=== PATIENT | female | born 1945 | race Two or more races ===

== ENCOUNTER 2018-12-11 06:26 | Day surgery (SDC) | payer BC ==
--- NOTE | 2018-12-10 14:32 | PREOPHP ---
DATE OF ADMISSION: 12/11/2018 HISTORY OF PRESENT ILLNESS: This 73-year-old patient is admitted for an advanced cataract of the rig ht eye. The patient has had progressive deterioration of vision in both eyes for a number of years w ithout prior history of eye disease or injury. PAST MEDICAL HISTORY: The patient has a 12-year history of zbu-fcfmqge-tbioifhce diabetes mellitus a s well as a history of systemic hypertension and hypercholesterolemia. CURRENT MEDICATIONS: Include: 1. Glipizide. 2. Metformin. 3. Losartan. 4. Amlodipine. 5. Lipitor. ALLERGIES: THERE ARE NO KNOWN ALLERGIES. PHYSICAL EXAMINATION: The visual acuity with correction is finger counting vision in each eye. Slit lamp examination reveals anterior cortical dense nuclear sclerotic and posterior subcapsular catarac ts present in both eyes. Applanation tonometry is 18 mmHg in both eyes. Examination of the retina i s grossly within normal limits in both eyes, although fine details cannot be visualized due to the ad vanced nature of the cataract. DIAGNOSES: Nuclear sclerotic and posterior subcapsular cataract in both eyes. PLAN: Cataract extraction with lens implant, right eye. The risks and alternatives to the surgery h ave been discussed with the patient as well as the higher risk of complications due to the advanced n ature of the cataract. The patient understands that her visual acuity is currently significantly com promised and avoiding cataract surgery would not allow her to function visually. The patient has dec ided to proceed with the surgery in hopes of improved visual acuity leading to greater ability to per form activities of daily living. Dictated By: KATIA LING/THOMAS Conf#: [id number] DID#: [id number]
[2018-12-10 15:41] VITALS: Ht 152.4 cm; Wt 56.0 kg
[~2018-12-11] VITALS: Ht 152.4 cm; Wt 56.0 kg
[2018-12-11] MEDS ORDERED: SOD CHLORIDE 0.9% 1,000 ML IV SCH (07:00)
[2018-12-11] MEDS ORDERED: TROPICAMIDE 1% 15 ML OPH OPER SCH (07:00)
[2018-12-11] MEDS ORDERED: MOXIFLOXACIN 0.5% 3 ML OPH OPER SCH (07:00)
[2018-12-11] MEDS ORDERED: CYCLOPENTOLATE/PHENYLEPH 2 ML OPH OPER SCH (07:00)
[2018-12-11] MEDS ORDERED: DICLOFENAC 0.1% 2.5 ML OPH OPER SCH (07:00)
[2018-12-11 08:03] VITALS: BP 151/79; PULSE 86; RESP 18
[2018-12-11] MEDS ORDERED: DEXAMETHASONE 4 MG/ML 1 ML INJ ONE (08:24)
[2018-12-11] MEDS ORDERED: TETRACAINE 0.5% 4 ML OPH ONE (08:24)
[2018-12-11] MEDS ORDERED: NA HYALURONATE/CHONDROITIN 0.5 ML SYG ONE (08:24)
[2018-12-11] MEDS ORDERED: CARBACHOL 0.01% 1.5 ML OPH INJ ONE (08:24)
[2018-12-11] MEDS ORDERED: LIDOCAINE 4% (MPF) 5 ML INJ ONE ×2 (08:24→09:22)
--- NOTE | 2018-12-11 08:31 | PREAC ---
Date/Time of Note Date/Time of Note DATE: 12/11/18 TIME: 08:30 Anesthesia Eval and Record Evaluation Time Pre-Procedure Interview DATE: 12/11/18 TIME: 08:30 Age 73 Sex female NPO: 8 hrs Preoperative diagnosis Right eye cataract Planned procedure Cataract extraction with IOL implant Past Medical History Past Medical History: Includes Cardio: HTN, Dyslipidemia Endo: Diabetes Surgery & Anesthesia Issues No known issue Meds Anticoagulation: No Beta Marianela within 24 hr: No Reason Beta Marianela not given: Pt. not on B-Marianela Current Medications Diclofenac Sodium (Voltaren 0.1%) 1 drop Q5 MIN X 3 OPER Last administered on 12/11/18at 07:31; Admin Dose 1 DROP; Start 12/11/18 at 07:00 Tropicamide (Mydriacyl 1%) 1 drop Q5 MIN X3 OPER Last administered on 12/11/18at 07:31; Admin Dose 1 DROP; Start 12/11/18 at 07:00 Moxifloxacin HCl (Vigamox) 1 drop Q5 MIN X 3 OPER Last administered on 12/11/18 07:32; Admin Dose 1 DROP; Start 12/11/18 at 07:00 Cyclopentolate/ Phenylephrine (Cyclomydril Oph 2 ml) 1 drop Q5 MIN X 3 OPER Last administered on 12/11/18 07:32; Admin Dose 1 DROP; Start 12/11/18 at 07:00 Sodium Chloride 1,000 ml @ 25 mls/hr Q24H IV Last administered on 12/11/18 07:33; Admin Dose 25 MLS/HR; Start 12/11/18 at 07:00 Meds reviewed: Yes Allergies Coded Allergies: No Known Allergy (Unverified , 12/10/18) Allergies Reviewed: Yes Labs/Studies Labs Reviewed: Reviewed by anesthesiologist test: N/A Pre-procedure Exam Last vitals Vital Signs Date Temp Pulse Resp B/P (MAP) Pulse Ox O2 O2 Flow FiO2 Time Delivery Rate 12/11/18 98.5 86 18 151/79 99 Room Air 08:03 (103) Airway: Adequate mouth opening Mallampati: Mallampati I Teeth: Normal Lung: Normal Heart: Normal ASA Physical Status ASA physical status: 2 Emergency: None Planned Anesthetic General/MAC: MAC Planned Pain Management Parenteral pain med Pre-operative Attestations Prior to commencing anesthesia and surgery, the patient was re-evaluated, there was verification of: *The patient's identity *The results of appropriate recent lab work and preoperative vital signs *The above evaluation not changing prior to induction *Anesthetic plan, risk benefits, alternative and complications discussed with patient/family; questions answered; patient/family understands, accepts and wishes to proceed. GEOVANNA HENSLEY MD Dec 11, 2018 08:30
[2018-12-11] MEDS ORDERED: PROPOFOL 20 ML ONE (08:39)
[2018-12-11] MEDS ORDERED: METOCLOPRAMIDE 10 MG INJ IV PRN (09:00)
[2018-12-11] MEDS ORDERED: hydrALAzine 20 MG INJ IV PRN (09:00)
[2018-12-11] MEDS ORDERED: MIDAZOLAM 1 MG/ML 2 ML INJ IV PRN (09:00)
[2018-12-11] MEDS ORDERED: FENTAnyl 50 MCG/ML VIAL IV PRN ×3 (09:00)
[2018-12-11] MEDS ORDERED: LABETALOL HCL 20MG INJ IV PRN (09:00)
[2018-12-11] MEDS ORDERED: DIPHENHYDRAMINE 50 MG INJ IV PRN (09:00)
[2018-12-11] MEDS ORDERED: OXYCODONE/ACETAMINOPHEN (5/325) TAB PO PRN ×2 (09:00)
[2018-12-11] MEDS ORDERED: EPHEDrine SULFATE 50 MG/5 ML SYG IV PRN (09:00)
[2018-12-11] MEDS ORDERED: ONDANSETRON 4 MG INJ IV PRN (09:00)
[2018-12-11] MEDS ORDERED: MEPERIDINE 25 MG INJ IV PRN (09:00)
[2018-12-11] MEDS ORDERED: MOXIFLOXACIN 0.5% 3 ML OPH ONE (09:11)
[2018-12-11 09:20] VITALS: BP 96/75; RESP 18
--- NOTE | 2018-12-11 09:24 | SIPON ---
Date/Time of Note Date/Time of Note DATE: 12/11/18 TIME: 09:22 Operative Report Preoperative Diagnosis mature cataract od Postoperative Diagnosis me Operation/Procedure Performed cataract extraction with lens implant od Surgeon Katia Soto clinical education assistant none Anesthesia: MAC Estimated blood loss: none Transfusion Required none Specimen none Grafts/Implants posterior chamber lens implant KATIA SOTO MD Dec 11, 2018 09:24
[2018-12-11 09:25] VITALS: BP 117/74; PULSE 80; RESP 16
[2018-12-11 09:30] VITALS: BP 124/72; PULSE 78; RESP 15
--- NOTE | 2018-12-11 09:31 | OPR ---
DATE OF OPERATION: 12/11/2018 PREOPERATIVE DIAGNOSIS: Mature cataract, right eye. POSTOPERATIVE DIAGNOSIS: Mature cataract, right eye. OPERATION PERFORMED: Cataract extraction with lens implant, right eye. SURGEON: Katia May MD. ANESTHESIA: Dr. Bernal. DESCRIPTION OF OPERATION: The patient was brought to the operating room on an eye gurney, positioned appropriately, and attached electrocardiogram monitoring, given oxygen via a nasal cannula. After s ome intravenous sedation, the patient received lidocaine 4% given in lid block and retrobulbar inject ion. The patient was prepped and draped in the usual sterile manner and a speculum was inserted betw een the lids of the right eye. Two paracentesis incisions were made through clear cornea at the 3 an d 9 o'clock position adjacent to the corneoscleral limbus. Following this, a 3.0 mm keratome was use d to make a stepped corneal incision at the 12 o'clock position. Through this opening, an irrigating cystotome was introduced into the eye. The anterior chamber was filled with Viscoat and then a larg e anterior capsulotomy was performed. Balanced salt solution was used for hydrodissection. Phacoemu lsification of the lens nucleus was then proceeded using a higher ultrasound setting. During the cou rse of the phacoemulsification, it was noted that the lens appeared to tilt posteriorly indicating a probable break in the posterior capsule. The lens was then fully emulsified with only a small fragme nt of epinucleus descending posteriorly into the vitreous. No formed vitreous presented at the lips of the wound and therefore no vitrectomy was required. Following the full removal of the cataract it was noted that there was still sufficient peripheral posterior capsular support for a posterior chamb er intraocular lens. At this point, Provisc was injected into the posterior chamber to deepen the ch lulu and delineate the posterior capsule present. A 23.5 diopter posterior chamber intraocular lens ([employer] Model LI61AO) was then inserted into the posterior chamber with the hap tics oriented in the horizontal meridian. The lens appeared to be stable despite external pressure o n the eye and no movement of the lens optic was noted after its insertion. One 10-0 nylon suture was placed across the wound and prior to tying the Provisc was aspirated from the anterior chamber. The suture was then tied, the knot was buried on the corneal side. Then 0.5 mL of Ancef and 0.5 mL of d examethasone were injected into the sub-Tenon space inferiorly. The speculum was then removed. Viga mox drops placed on the surface of the eye and the eye was patched. The patient then left the operat ing room in satisfactory condition. Dictated By: AKTIA LING/THOMAS Conf#: [id number] DID#: [id number]
[2018-12-11 10:00] VITALS: BP 145/73; PULSE 80; RESP 18
--- NOTE | 2018-12-11 10:26 | PAC ---
Date/Time of Note Date/Time of Note DATE: 12/11/18 TIME: 10:26 Post-Anesthesia Notes Post-Anesthesia Note Last documented vital signs Vital Signs Date Temp Pulse Resp B/P (MAP) Pulse Ox O2 O2 Flow FiO2 Time Delivery Rate 12/11/18 97.9 09:57 12/11/18 78 15 124/72 98 Room Air 09:30 (89) Activity: WNL Respiratory function: WNL Cardiovascular function: WNL Mental status: Baseline Pain reasonably controlled: Yes Hydration appropriate: Yes Nausea/Vomiting absent: Yes GEOVANNA HENSLEY MD Dec 11, 2018 10:26
== END 2018-12-11 10:36 | disposition home or self-care (01) ==
LOC: SDS 06:26
PROVIDERS: ATTEND Ophthalmology
DX: H26.8 Other specified cataract (principal); I10 Essential (primary) hypertension; E11.9 Type 2 diabetes mellitus without complications; E78.5 Hyperlipidemia, unspecified
CPT/HCPCS: 66984; 82962; J1100; V2632; Z7512; Z7610

== ENCOUNTER 2019-02-19 05:46 | Day surgery (SDC) | payer BC ==
[2019-02-19] VITALS (8 sets, daily range): BP systolic 120–146; BP diastolic 75–85; PULSE 82–89; RESP 13–18; Ht 152.4 cm; Wt 57.1 kg
[~2019-02-19] VITALS: Ht 152.4 cm; Wt 57.1 kg
[2019-02-19] MEDS ORDERED: SOD CHLORIDE 0.9% 1,000 ML IV SCH (06:00)
[2019-02-19] MEDS ORDERED: DICLOFENAC 0.1% 2.5 ML OPH OPER SCH (06:00)
[2019-02-19] MEDS ORDERED: MOXIFLOXACIN 0.5% 3 ML OPH OPER SCH (06:00)
[2019-02-19] MEDS ORDERED: TROPICAMIDE 1% 15 ML OPH OPER SCH (06:00)
[2019-02-19] MEDS ORDERED: CYCLOPENTOLATE/PHENYLEPH 2 ML OPH OPER SCH (06:00)
[2019-02-19] MEDS ORDERED: LIDOCAINE 4% (MPF) 5 ML INJ ONE (06:49)
[2019-02-19] MEDS ORDERED: CEFAZOLIN 1 GM INJ ONE (06:49)
[2019-02-19] MEDS ORDERED: TETRACAINE 0.5% 4 ML OPH ONE (06:50)
[2019-02-19] MEDS ORDERED: EPINEPHrine 1 MG INJ ONE (06:50)
[2019-02-19] MEDS ORDERED: LIDOCAINE 1% (MPF) 10 ML INJ ONE (06:50)
[2019-02-19] MEDS ORDERED: GENTAMICIN 80 MG INJ ONE (06:50)
[2019-02-19] MEDS ORDERED: CARBACHOL 0.01% 1.5 ML OPH INJ ONE (06:50)
[2019-02-19] MEDS ORDERED: NA HYALURONATE/CHONDROITIN 0.5 ML SYG ONE (06:50)
[2019-02-19] MEDS ORDERED: DEXAMETHASONE 4 MG/ML 1 ML INJ ONE (06:50)
[2019-02-19] MEDS ORDERED: METF500T24 PO (06:57)
[2019-02-19] MEDS ORDERED: AMLO-145 PO (06:58)
[2019-02-19] MEDS ORDERED: ATOR10TA65 PO (06:58)
[2019-02-19] MEDS ORDERED: LOSA50TA2 PO (06:58)
--- NOTE | 2019-02-19 07:20 | PREAC ---
Date/Time of Note Date/Time of Note DATE: 02/19/19 TIME: 07: Anesthesia Eval and Record Evaluation Time Pre-Procedure Interview DATE: 02/19/19 TIME: 07:19 Age 73 Sex female NPO: 8 hrs Preoperative diagnosis L eye cataracts Planned procedure L eye cataract extraction Past Medical History Past Medical History: Includes Cardio: HTN, Dyslipidemia Endo: Diabetes GI: Obesity Surgery & Anesthesia Issues No known issue Meds Anticoagulation: No Beta Marianela within 24 hr: No Reason Beta Marianela not given: Pt. not on B-Marianela Reported Medications Losartan Potassium* (Cozaar*) 50 Mg Tablet, 50 MG PO DAILY, #30 TAB 02/19/19 Amlodipine Besylate* (Amlodipine Besylate*) 5 Mg Tablet, 5 MG PO DAILY, #30 TAB 02/19/19 Atorvastatin Calcium (Atorvastatin Calcium) 10 Mg Tablet, 10 MG PO QHS, #30 TAB 02/19/19 Metformin Hcl* (Metformin Hcl*) 500 Mg Tablet, 500 MG PO WITH BREAKFAST, #30 TAB 02/19/19 Current Medications Diclofenac Sodium (Voltaren 0.1%) 1 drop Q5 MIN X 3 OPER Last administered on 02/19/19at 06:53; Admin Dose 1 DROP; Start 02/19/19 at 06:00 Tropicamide (Mydriacyl 1%) 1 drop Q5 MIN X3 OPER Last administered on 02/19/19at 06:54; Admin Dose 1 DROP; Start 02/19/19 at 06:00 Moxifloxacin HCl (Vigamox) 1 drop Q5 MIN X 3 OPER Last administered on 02/19/19at 06:54; Admin Dose 1 DROP; Start 02/19/19 at 06:00 Cyclopentolate/ Phenylephrine (Cyclomydril Oph 2 ml) 1 drop Q5 MIN X 3 OPER Last administered on 02/19/19at 06:54; Admin Dose 1 DROP; Start 02/19/19 at 06:00 Sodium Chloride 1,000 ml @ 25 mls/hr Q24H IV Last administered on 02/19/19at 07 :19; Admin Dose 25 MLS/HR; Start 02/19/19 at 06:00 Meds reviewed: Yes Allergies Coded Allergies: No Known Allergy (Unverified , 12/10/18) Allergies Reviewed: Yes Labs/Studies Labs Reviewed: Reviewed by anesthesiologist test: N/A Pre-procedure Exam Airway: Adequate mouth opening, Adequate thyromental dist Mallampati: Mallampati II Teeth: Normal Lung: Normal Heart: Normal ASA Physical Status ASA physical status: 3 Emergency: None Planned Anesthetic General/MAC: Mask, MAC Pre-operative Attestations Prior to commencing anesthesia and surgery, the patient was re-evaluated, there was verification of: *The patient's identity *The results of appropriate recent lab work and preoperative vital signs *The above evaluation not changing prior to induction *Anesthetic plan, risk benefits, alternative and complications discussed with patient/family; questions answered; patient/family understands, accepts and wishes to proceed. NEL NICOLE February 19, 2019 07:20
[2019-02-19] MEDS ORDERED: FENTAnyl 50 MCG/ML VIAL IV PRN ×2 (07:30)
[2019-02-19] MEDS ORDERED: DIPHENHYDRAMINE 50 MG INJ IV PRN (07:30)
[2019-02-19] MEDS ORDERED: MEPERIDINE 25 MG INJ IV PRN (07:30)
[2019-02-19] MEDS ORDERED: METOCLOPRAMIDE 10 MG INJ IV PRN (07:30)
[2019-02-19] MEDS ORDERED: HYDROmorphONE 1 MG/5 ML IV SYRINGE IV PRN ×3 (07:30)
[2019-02-19] MEDS ORDERED: ONDANSETRON 4 MG INJ IV PRN (07:30)
[2019-02-19] MEDS ORDERED: ALBUTEROL 0.083% (NEB) 2.5 MG/3 ML AMP HHN PRN (07:30)
[2019-02-19] MEDS ORDERED: FENTAnyl 50 MCG/ML VIAL ONE (07:32)
[2019-02-19] MEDS ORDERED: PROPOFOL 20 ML ONE (07:32)
[2019-02-19] MEDS ORDERED: NOVMIX SC (07:38)
--- NOTE | 2019-02-19 08:14 | PREOPHP ---
DATE OF ADMISSION: 02/19/2019 HISTORY OF PRESENT ILLNESS: This 73-year-old patient is admitted for elective cataract surgery of th e left eye. The patient has had progressive deterioration of vision in both eyes for a number of yea rs without prior history of eye disease or injury. Two months ago, the patient underwent cataract glynn rgery on the right eye with excellent visual recovery. The patient's systemic history is positive fo r hypertension and hypercholesterolemia as well as noninsulin dependent diabetes mellitus. CURRENT MEDICATIONS: 1. Glipizide. 2. Metformin. 3. Losartan. 4. Amlodipine. 5. Lipitor. ALLERGIES: THERE ARE NO KNOWN ALLERGIES. PHYSICAL EXAMINATION: The visual acuity with best correction is 20/25 in the right eye and finger co unting vision in the left eye. Slit lamp examination reveals a posterior chamber intraocular lens in appropriate position in the right eye and a nuclear sclerotic and posterior subcapsular cataract in the left eye. Applanation tonometry is 20 mmHg in both eyes. Examination of the retina is grossly w ithin normal limits in the left eye due to the difficulty seeing through a dense cataract. DIAGNOSIS: Nuclear sclerotic and posterior subcapsular cataract, left eye. PLAN: Cataract extraction with lens implant, left eye. The risks and alternatives to the surgery patel ve been discussed with the patient hoping to have improved visual acuity leading to greater ability t o perform activities of daily living. The patient consents to the surgery. Dictated By: KATIA LING/THOMAS Conf#: [id number] DID#: [id number] CC: KATIA SOTO MD;*EndCC*
--- NOTE | 2019-02-19 08:22 | SIPON ---
Date/Time of Note Date/Time of Note DATE: 02/19/19 TIME: 08:21 Operative Report Preoperative Diagnosis nuclear sclerotic and posterior subcapsular cataract os Postoperative Diagnosis same Operation/Procedure Performed cataract extraction with lens implant os Surgeon katia soto assistant professor of english none Anesthesia: MAC Estimated blood loss: none Transfusion Required none Specimen none Grafts/Implants posterior chamber lens implant Complications none KATIA SOTO MD February 19, 2019 08:22
--- NOTE | 2019-02-19 09:16 | OPR ---
DATE OF OPERATION: 02/19/2019 PREOPERATIVE DIAGNOSIS: Nuclear sclerotic cataract, left eye and posterior subcapsular cataract, lef t eye. POSTOPERATIVE DIAGNOSIS: Nuclear sclerotic cataract, left eye and posterior subcapsular cataract, le ft eye. OPERATION PERFORMED: Cataract extraction with lens implant, left eye. SURGEON: Katia May MD. ANESTHESIA: Local standby. ANESETHESIOLOGIST: Dr. White. PROCEDURE: The patient was brought to the operating room and placed on the table with an IV in place and the patient attached to an satellite project site monitor. Oxygen was given via face mask. After some intravenous sedation was administered, local anesthesia was given using Xylocaine 2% with epinephrine, mixed with Marcaine 0.5%. This was given in a lid block and retrobulbar injection. The patient was then prepped and draped in the usual sterile manner. A wire lid speculum was inserted between the lids of the left eye. A Superblade was used to enter th e anterior chamber at the corneoscleral limbus at the 10:30 o'clock position. A separate incision wa s made using a 3.0-mm keratome which entered the corneoscleral junction at the 12 o'clock position. Through this 3-mm opening, an irrigating cystotome was introduced into the anterior chamber. The dinah mber was filled with Viscoat and an anterior capsulotomy was performed. Balanced salt solution was t hen used for hydrodissection of the lens. A phacoemulsification handpiece was then brought into the field and introduced into the anterior chamber. The lens nucleus was emulsified using a deep groove and cracking the nucleus into quadrants. Following this, each quadrant was aspirated and emulsified at the pupillary margin. After this was completed, the irrigation/aspiration handpiece was brought to the field, introduced in to the posterior chamber, and the lens cortical material was removed. When this was completed, addit ional Viscoat was injected into the anterior and posterior chambers. The 3-mm opening had its internal lips enlarged, and then the posterior chamber intraocular lens edwin uring 23.5 diopters ([employer] Model LI61AO) was then injected into the posterior c hamber using the lens injector system. After the leading haptic was introduced into the capsular bag and the lens optic was present in the center of the eye, the injector was removed and the trailing h aptic was grasped with non-toothed forceps and introduced into the capsular fold superiorly. A [place] ey hook was then used to rotate the intraocular lens so that the lips were oriented in the horizontal meridian. One 10-0 nylon suture was placed across the wound. Prior to tying, the irrigation/aspiration handpiece was reintroduced into the anterior chamber to rem ove the Viscoat. Miochol was instilled to constrict the pupil, and then the 10-0 nylon suture was ti ed. The ends were cut short and then the knot was buried. Then, 0.5 mL of dexamethasone and 0.5 mL of Ancef were injected into the sub-Tenon space in the infer ior fornix. Ciloxan drops were then placed on the surface of the eye. The speculum was removed and a patch was applied. The patient then left the operating room in satisfactory condition. Dictated By: KATIA LING/THOMAS Conf#: [id number] DID#: [id number]
--- NOTE | 2019-02-20 06:44 | PAC ---
Date/Time of Note Date/Time of Note DATE: 02/20/19 TIME: 06:44 Post-Anesthesia Notes Post-Anesthesia Note Last documented vital signs Vital Signs Date Temp Pulse Resp B/P (MAP) Pulse Ox O2 O2 Flow FiO2 Time Delivery Rate 02/19/19 100.0 08:53 02/19/19 86 14 145/84 99 Room Air 08:50 (104) Activity: WNL Respiratory function: WNL Cardiovascular function: WNL Mental status: Baseline Pain reasonably controlled: Yes Hydration appropriate: Yes Nausea/Vomiting absent: Yes NEL NICOLE February 20, 2019 06:44
== END 2019-02-19 09:50 | disposition home or self-care (01) ==
LOC: SDS 05:46
PROVIDERS: ATTEND Ophthalmology
DX: H25.12 Age-related nuclear cataract, left eye (principal); E11.9 Type 2 diabetes mellitus without complications; I10 Essential (primary) hypertension; Z79.84 Long term (current) use of oral hypoglycemic drugs
CPT/HCPCS: 66984; 82962; J0171; J0690; J1100; J1580; J3010; V2632; Z7512; Z7610